=== PATIENT | male | born 1970 | race Caucasian/White ===

== ENCOUNTER 2017-02-15 14:40 | Emergency (ER) | payer MEDICAID ==
[~2017-02-15] VITALS: Ht 182.9 cm; Wt 121.8 kg
[2017-02-15 14:42] VITALS: BP 175/112
== END 2017-02-15 16:41 | disposition home or self-care (01) ==
LOC: ED 15:28
DX: G56.03 Carpal tunnel syndrome, bilateral upper limbs (principal); I10 Essential (primary) hypertension; F17.200 Nicotine dependence, unspecified, uncomplicated
CPT/HCPCS: 29125; 82962

== ENCOUNTER 2019-04-15 12:41 | Emergency (ER) | payer MEDICAID ==
[~2019-04-15] VITALS: Ht 182.9 cm; Wt 130.0 kg
[2019-04-15 17:04] VITALS: BP 196/119
== END 2019-04-15 17:25 | disposition home or self-care (01) ==
LOC: ED 17:23
DX: M77.52 Other enthesopathy of left foot and ankle (principal); I10 Essential (primary) hypertension
CPT/HCPCS: 99283